=== PATIENT | female | born 1990 | race Asian ===

== ENCOUNTER 2017-12-07 09:10 | Inpatient (IN) | payer SELFPAY ==
[~2017-12-07] VITALS: Ht 154.9 cm; Wt 70.3 kg
[2017-12-07] MEDS ORDERED: LACTATED RINGERS 1,000 ML IV SCH (09:48)
[2017-12-07] MEDS ORDERED: OXYTOCIN 20 UNITS in LACTATED RINGERS 1,000 ML IV SCH ×2 (09:48→10:20)
[2017-12-07] MEDS ORDERED: PROMETHAZINE 25 MG/ML VIAL IVP PRN (09:50)
[2017-12-07] MEDS ORDERED: OXYTOCIN 10 UNITS/ML VIAL IM SCH (09:50)
[2017-12-07] MEDS ORDERED: NALBUPHINE HYDROCHLORIDE 10 MG/ML VIAL IVP PRN (09:50)
[2017-12-07 10:04] VITALS: BP 125/64
[2017-12-07] MEDS ORDERED: AMPICILLIN 2,000 MG in NACL 0.9% MINI-BAG PLUS 100 ML IV SCH (10:05)
[2017-12-07 11:05] LABS: BASOPHILS # (AUTO) 0.1 K/uL (0.00-0.22); BASOPHILS % (AUTO) 1.2 % (0.0-2.0); EOSINOPHILS # (AUTO) 0.1 K/uL (0-0.4); EOSINOPHILS % (AUTO) 0.6 % (0.0-4.0); HEMATOCRIT 34.1 % (36-48); HEMOGLOBIN 11.7 g/dL (12.0-16.0); LYMPHOCYTES # (AUTO) 1.9 K/uL (2.5-16.5); LYMPHOCYTES % (AUTO) 21.4 % (20.5-51.1); MEAN CORPUSCULAR HEMOGLOBIN 32 pg (27-31); MEAN CORPUSCULAR HGB CONC 34 g/dL (33-37); MEAN CORPUSCULAR VOLUME 93.6 fL (80-94); MONOCYTES # (AUTO) 0.7 K/uL (0.8-1.0); MONOCYTES % (AUTO) 7.5 % (1.7-9.3); NEUTROPHILS # (AUTO) 6.1 K/uL (1.8-7.7); NEUTROPHILS % (AUTO) 69.3 % (42.2-75.2); PLATELET COUNT (AUTO) 174 K/uL (140-450); RED BLOOD CELL COUNT(AUTO) 3.65 MIL/uL (4.20-5.40); WHITE BLOOD COUNT (AUTO) 8.9 K/uL (4.8-10.8)
[2017-12-07 11:31] LABS: APPEARANCE,URINE HAZY (CLEAR); BILIRUBIN,URINE NEGATIVE (NEGATIVE); BLOOD, URINE 3+ (NEGATIVE); LEUKOCYTE ESTERASE ,URINE NEGATIVE (NEGATIVE); NITRITE, URINE NEGATIVE (NEGATIVE); PH,URINE 7.5 (5.0-9.0); UGLUCOSE NEGATIVE (NEGATIVE)
[2017-12-07 11:39] LABS: COLOR,URINE LT. PINK (YELLOW)
[2017-12-07 11:45] LABS: RBC,URINE 3-10 (FEW) /HPF (0-5); WBC,URINE 0-5 (RARE) /HPF (0-5)
[2017-12-07 11:52] LABS: ALBUMIN 2.3 g/dL (3.4-5.0); CARBON DIOXIDE 23.6 mmol/L (21-32); CREATININE 0.6 mg/dL (0.6-1.3); POTASSIUM 3.6 mmol/L (3.5-5.1); TOTAL BILIRUBIN 0.3 mg/dL (0.0-1.0)
[2017-12-07] MEDS: CLINDAMYCIN 900 MG in DEXTROSE 5% 100 ML IV SCH ×2 (11:53→20:04)
--- NOTE | 2017-12-07 14:04 | NUR ---
PATIENT HAS BEEN SCREENED AND CATEGORIZED LOW NUTRITION RISK. PATIENT WILL BE SEEN WITHIN 7 DAYS OF ADMISSION. 12/13/[address]
[2017-12-07] MEDS ORDERED: BUPIVACAINE 0.125%/NS PREMIX 250 ML EPI SCH (14:44)
[2017-12-07] MEDS ORDERED: AMPICILLIN 1,000 MG in NACL 0.9% MINI-BAG PLUS 50 ML IV SCH (16:00)
[2017-12-07] MEDS ORDERED: IBUPROFEN 800 MG TAB PO PRN (17:40)
[2017-12-07] MEDS ORDERED: OXYTOCIN 10 UNITS/ML VIAL IM PRN (17:40)
[2017-12-07] MEDS ORDERED: METHYLERGONOVINE 0.2 MG/ML AMP IM PRN (17:40)
[2017-12-07] MEDS ORDERED: TEMAZEPAM 15 MG CAP PO PRN (17:40)
[2017-12-07] MEDS ORDERED: HYDROcodone/APAP 5/325 MG 1 TAB TAB PO PRN (17:40)
[2017-12-07] MEDS ORDERED: oxyCODONE/APAP 5/325 MG 1 TAB TAB PO PRN (17:40)
[2017-12-07] MEDS ORDERED: BENZOCAINE/MENTHOL 20%-0.5% 60 GM CAN TP PRN (17:40)
[2017-12-07] MEDS ORDERED: MEASLES, MUMPS, AND RUBELLA 1 VIAL SQVAC PRN (17:40)
[2017-12-07] MEDS ORDERED: DOCUSATE SOD/SENNA 50/8.6 MG 1 TAB PO SCH (21:00)
[2017-12-07] MEDS ORDERED: OXYTOCIN 10 UNITS/ML VIAL ONE (22:37)
[2017-12-08 07:05] LABS: HEMATOCRIT 27.1 % (36-48); HEMOGLOBIN 9.3 g/dL (12.0-16.0)
[2017-12-08] MEDS ORDERED: OXYTOCIN 20 UNITS in LACTATED RINGERS 1,000 ML IV SCH (09:48)
[2017-12-08] MEDS ORDERED: FERROUS SULFATE 325 MG TABEC PO SCH (12:45)
[2017-12-08] MEDS ORDERED: AMMONIA AROMATIC 1 INHL INH ONE (13:26)
[2017-12-08] MEDS: FERROUS SULFATE 325 MG TABEC PO SCH (18:18)
[2017-12-09] MEDS: FERROUS SULFATE 325 MG TABEC PO SCH (13:34)
== END 2017-12-09 16:45 | disposition home or self-care (01) | DRG 774 ==
LOC: MLD 09:10 → MFCC 12-08 02:44
PROVIDERS: ADMIT Obstetrics & Gynecology; ATTEND Obstetrics & Gynecology
PROC: 10D07Z6 Extraction of Products of Conception, Vacuum, Via Natural or Artificial Opening (ICD-10-PCS; principal; 2017-12-07)
PROC: 0W8NXZZ Division of Female Perineum, External Approach (ICD-10-PCS; 2017-12-07)
PROC: 00HU33Z Insertion of Infusion Device into Spinal Canal, Percutaneous Approach (ICD-10-PCS; 2017-12-07)
PROC: 3E0R3BZ Introduction of Anesthetic Agent into Spinal Canal, Percutaneous Approach (ICD-10-PCS; 2017-12-07)
PROC: 3E0234Z Introduction of Serum, Toxoid and Vaccine into Muscle, Percutaneous Approach (ICD-10-PCS; 2017-12-09)
DX: O64.0XX0 Obstructed labor due to incomplete rotation of fetal head, not applicable or unspecified (principal); O98.42 Viral hepatitis complicating childbirth; B19.10 Unspecified viral hepatitis B without hepatic coma; O69.81X0 Labor and delivery complicated by cord around neck, without compression, not applicable or unspecified; O76 Abnormality in fetal heart rate and rhythm complicating labor and delivery; Z37.0 Single live birth; Z3A.39 39 weeks gestation of pregnancy; Z23 Encounter for immunization; Z88.0 Allergy status to penicillin
CPT/HCPCS: 36415; 51702; 80053; 81001; 85018; 85025; 86592; 86886; 86900; 86901; 90715; J2300; J2590; J3490; J7060; J7120